=== PATIENT | female | born 1965 | race Caucasian/White ===

== ENCOUNTER 2016-04-08 10:58 | Emergency (ER) | payer SELFPAY ==
[~2016-04-08] VITALS: Ht 167.6 cm; Wt 77.3 kg
[~2016-04-08 10:58] MED LIST: LEVOXYL0.1 MG PO; LORTAB 7.5/5001 TAB PO; NORCO 325 MG-51 TAB PO; NORCO 325 MG-7.1 TAB PO; PEN-VEE K500 MG PO; PERIDEX (CHLOR480 ML MM
[2016-04-08 11:10] VITALS: BP 161/99; PULSE 74; TEMP 98.1
[2016-04-08 13:06] LABS: PH 6 (5-8); URINE APPEARANCE Clear; URINE BACTERIA Rare /hpf; URINE BILIRUBIN Negative (NEGATIVE); URINE BLOOD Negative (NEGATIVE); URINE COLOR Straw; URINE GLUCOSE Negative (NEGATIVE); URINE KETONE Negative (NEGATIVE); URINE RBC 0-2 /hpf; URINE UROBILINOGEN Negative (NEGATIVE); URINE WBC 20-50 /hpf
[2016-04-08] MEDS ORDERED: CEFTIN500 MG PO (13:31)
[2016-04-12] MEDS ORDERED: CIPRO 500MG TA500 MG PO (14:46)
== END 2016-04-08 12:56 | disposition left against medical advice (07) ==
LOC: COL.ER 10:58
PROVIDERS: Nurse Practitioner
DX: N39.0 Urinary tract infection, site not specified (principal); B96.20 Unspecified Escherichia coli [E. coli] as the cause of diseases classified elsewhere; Z53.29 Procedure and treatment not carried out because of patient's decision for other reasons

== ENCOUNTER 2016-12-18 12:18 | Emergency (ER) | payer SELFPAY ==
[~2016-12-18] VITALS: Ht 167.6 cm; Wt 71.8 kg
[~2016-12-18 12:18] MED LIST changes: +CEFTIN500 MG PO; +CIPRO 500MG TA500 MG PO
[2016-12-18 12:20] VITALS: BP 171/108; PULSE 71; TEMP 98.4
[2016-12-18 13:46] LABS: INFLUENZA B NEGATIVE
== END 2016-12-18 14:00 | disposition home or self-care (01) ==
LOC: COL.ER 12:18
PROVIDERS: Nurse Practitioner
DX: B34.9 Viral infection, unspecified (principal); Z90.49 Acquired absence of other specified parts of digestive tract